=== PATIENT | female | born 1935 ===

== ENCOUNTER 2016-10-09 18:13 | Emergency (ER) | payer MEDICARE, OTHER ==
--- NOTE | 2016-10-09 18:32 | ERNOTE ---
Medical Problem HPI - Narrative Date of Service: 10/09/16 - General Chief Complaint: General Assessment Time Seen by Provider: 10/09/16 18:23 Source: RN notes reviewed, assisted records Exam Limitations: dementia - Immun/Allergies/Home Medications Immunizations: IMMUNIZATION HX Immunizations Up to Date Yes History of Influenza Vaccine Yes Allergies/Adverse Reactions: Allergies meperidine Allergy (Verified 10/09/16 18:22) Home Medications: HOME MEDICATIONS Insulin Detemir [Levemir] 16 units SC HS 10/09/16 [Last Taken Unknown] Levothyroxine Sodium [Synthroid] 100 mcg PO DAILY 10/09/16 [Last Taken Unknown] Lisinopril [Zestril] 20 mg PO DAILY 10/09/16 [Last Taken Unknown] Polyethylene Glycol 3350 [Miralax] 17 gm PO DAILY 10/09/16 [Last Taken Unknown] Risperidone [Risperidone Odt] 0.25 mg PO BID 10/09/16 [Last Taken Unknown] Simvastatin [Zocor] 40 mg PO HS 10/09/16 [Last Taken Unknown] - History of Present History Narrative: Presents with possible hypoglycemic reaction. It is from the assisted was noted that she was a little confused and very somnolent blood sugar was checked and it was 73 check here was 60 ambulance was called patient was given some dextrose as well as glucagon and she is doing much better now. The patient is much improved while in the ER she appears to be back at her baseline denies any issue at this point time she does have some mild degree of dementia but she is alert to person, but not so much to place and time Timing: gone now Review of Systems - Review of Systems Constitutional: Absent: fever, chills, weakness, fatigue Respiratory: Absent: shortness of breath, cough, orthopnea, wheezing Cardiology: Absent: chest pain, palpitations, syncope, edema Gastrointestinal/Abdominal: Absent: vomiting, abdominal pain Neurological: Absent: headache All Other Systems: All systems neg except as marked - Patient's Past Medical History Patient History - Medical: Anemia, Diabetes Type 1, Dementia, Depression, GERD, Hypothyroidism Patient History - Cardiac/Respiratory: CVA/Stroke, Hypertension, TIA Patient History - Cancer: No Hx of Cancer Patient History - Surgical Procedures: Cholecystectomy, Tubal Ligation, Other - Immunizations Immunizations Up to Date: Yes History of Influenza Vaccine: Yes Physical Exam - Physical Exam General Appearance: Present: wd/wn, alert, no apparent distress Eye Exam: PERRL: bilateral, EOMI: bilateral Ears, Nose, Throat: Present: normal ENT inspection, hearing grossly normal Neck: Present: normal inspection, nontender Respiratory: Present: no respiratory distress, normal breath sounds, no accessory muscle use, chest nontender, lungs clear Cardiovascular/Chest: Present: regular rate, rhythm, no murmur, normal peripheral pulses Gastrointestinal/Abdominal: Present: normal bowel sounds, nontender, nondistended, soft, no organomegaly Back Exam: Present: normal inspection Extremity Exam: Present: normal inspection, non-tender Neurological Exam: Present: alert, normal mood/affect, no motor/sensory deficits Skin Exam: Present: normal color, warm/dry Lymphatic Exam: Present: no adenopathy ED Progress - Results and Orders Patient's Lab Results:: I have reviewed the patient's lab results. - Vital Signs Patient's Vital Signs:: I have reviewed the patient's vital signs. Vital Signs: Vital Signs 10/09/16 18:18 Temperature 34.7 C L Pulse Rate 64 Respiratory 14 Rate Blood Pressure 127/58 O2 Sat by Pulse 97 Oximetry - Progress/Reassessment Chief Complaint: General Assessment Progress:: Improved Progress Note-Subjective: 10/09/16 20:04 Patient doing well blood sugars improved workup is negative thus far patient be transferred back to the assisted decreased Levemir insulin down to 10 units subcutaneous daily at bedtime hole Levemir, blood sugar is less than 150. Patient to follow up PCP in next 2-3 days returning back to the ER with any change or worsening symptoms Departure - Departure Clinical Impression: Hypoglycemic reaction Disposition: Other home health Condition: Stable Additional Instructions: Patient will be transferred back to the assisted
[2016-10-09 19:14] LABS: Hematocrit 36.1 % (37.0-47.0); Hemoglobin 11.6 gm/dL (12.5-16.0); Mean Cell Volume 90.9 fl (78-100); Mean Corpuscular Hemoglobin 29.2 pg (27-31); Mean Corpuscular Hgb Conc 32.1 g/dl (32-36); Mean Platelet Volume 9.6 fl (6.0-9.5); Neutrophil # 9.2 K/mm3 (1.3-6.0); Neutrophil % 80.8 % (42-75.0); Platelet Count 309 K/mm3 (150-450); Red Blood Count 3.97 M/mm3 (4.2-5.4); Red Cell Distribution Width 12.7 % (11.5-14.0); White Blood Count 11.4 K/mm3 (4.0-10.5)
[2016-10-09 19:29] LABS: Albumin * 3.2 gm/dl (3.4-5.0); Anion Gap 10.5 mmol/L (6.8-13.8); BUN/Creatinine Ratio 20.8 (9.0-21.6); Bilirubin, Total 0.3 mg/dL (0.0-1.1); Ca. Corrected For Albumin 9.7 mg/dL (8.4-10.2); Calcium * 9.4 mg/dL (7.9-10.9); Carbon Dioxide 28.7 mmol/L (24-32.6); Potassium 4.2 mmol/L (3.4-4.6); Total Protein 7.7 gm/dL (6.2-8.2)
[2016-10-09 19:45] LABS: Urine Bilirubin Negative (NEGATIVE); Urine Blood Negative /ul (NEGATIVE); Urine Ketone 5 mg/dL (NEGATIVE); Urine Nitrite Negative (NEGATIVE); Urine Protein Negative (NEGATIVE); Urine Specific Gravity 1.025 SP.GR. (1.005-1.010); Urine Urobilinogen Normal (NORMAL)
[2016-10-09 19:55] LABS: Urine Appearance Clear; Urine Bacteria None Seen; Urine Color Yellow; Urine RBC TRACE /hpf (0-5); Urine WBC None Seen /hpf (0-5)
[2016-10-09 20:56] VITALS: BP 110/64
== END 2016-10-09 20:55 | disposition home health service (06) ==
LOC: ER 18:13
DX: E16.1 Other hypoglycemia (principal); Z90.49 Acquired absence of other specified parts of digestive tract; E03.9 Hypothyroidism, unspecified; Z86.73 Personal history of transient ischemic attack (TIA), and cerebral infarction without residual deficits; I10 Essential (primary) hypertension; E10.9 Type 1 diabetes mellitus without complications